=== PATIENT | male | born 1995 | race Caucasian/White ===

== ENCOUNTER 2023-08-17 08:59 | Inpatient (IN) | payer BC ==
[~2023-08-17] VITALS: Ht 180.3 cm; Wt 60.1 kg
[2023-08-17 08:00] VITALS: BP 124/83; PULSE 78; RESP 20; TEMP 97.8
[2023-08-17 10:36] LABS: BASOPHILS % 0.6 % (0.0-2.0); EOSINOPHILS % 1.3 % (0.0-5.0); HEMATOCRIT. 45.1 % (42.0-52.0); LYMPHOCYTES % 22.1 % (20.0-50.0); MEAN CORPUSCULAR HGB CONC 33.3 g/dL (31.0-37.0); MEAN CORPUSCULAR VOLUME 86.9 fL (80.0-94.0); MONOCYTES % 6.1 % (2.0-8.0); NEUTROPHILS % 69.9 % (40.0-76.0); PLATELET 320 x1000/uL (130-400); RED BLOOD CELL COUNT 5.19 mill/uL (4.7-6.1); RED CELL DISTRIBUTION WIDTH 13.8 % (11.6-14.6); WHITE BLOOD COUNT 6.6 x1000/uL (4.5-11.0)
[2023-08-17 11:14] LABS: ALANINE AMINOTRANSFERASE 19 IU/L (10-49); ALBUMIN 4.4 g/dL (3.2-4.8); ASPARTATE AMINOTRANSFERASE 32 IU/L (<34); BILIRUBIN TOTAL 1.6 mg/dL (0.1-1.0); CALCIUM 9.7 mg/dL (8.7-10.4); CARBON DIOXIDE 30 mEq/L (21-32); CHLORIDE 105 mEq/L (98-107); GLUCOSE 82 mg/dL (70-105); PROTEIN TOTAL 6.8 g/dL (6.0-8.3); SODIUM 141 mEq/L (136-145); UREA NITROGEN BLOOD 9 mg/dL (9-23)
[2023-08-17 11:35] LABS: TROPONIN I HIGH SENSITIVITY < 4 ng/L (3.0-53)
[2023-08-17 16:00] VITALS: PULSE 86
[2023-08-17 16:59] VITALS: BP 124/83; PULSE 75; RESP 18; TEMP 97.5
[2023-08-17 17:20] VITALS: BP 124/83; PULSE 65; RESP 18; TEMP 97
[2023-08-17] MEDS ORDERED: ZOLPIDEM TARTRATE 5MG TABLET PO PRN (17:45)
[2023-08-17] MEDS ORDERED: CLONIDINE 0.1MG TABLET PO PRN (17:45)
[2023-08-17] MEDS ORDERED: ACETAMINOPHEN 325MG TABLET PO PRN ×2 (17:45)
[2023-08-17] MEDS ORDERED: DIPHENHYDRAMINE 50MG/ML VIAL IV PRN (17:45)
[2023-08-17] MEDS ORDERED: MAGNESIUM/ALUMINUM HYDROXIDE/SIMETHICONE 30ML UDC PO PRN (17:45)
[2023-08-17] MEDS ORDERED: ONDANSETRON HCL 4MG/2ML INJ IV PRN (17:45)
[2023-08-17 19:37] LABS: CLARITY URINE CLEAR (CLEAR); COLOR URINE YELLOW (YELLOW)
[2023-08-17 19:38] LABS: GLUCOSE URINE NEGATIVE (NEGATIVE); KETONES URINE NEGATIVE (NEGATIVE); LEUKOCYTE ESTERASE URINE NEGATIVE (NEGATIVE); NITRITE URINE NEGATIVE (NEGATIVE); OCCULT BLOOD URINE NEGATIVE (NEGATIVE); PROTEIN URINE NEGATIVE (NEGATIVE); UROBILINOGEN URINE 0.2 E.U./dL (0.2-1.0)
[2023-08-17 20:00] VITALS: BP 120/79; PULSE 60; RESP 19; TEMP 97.6
[2023-08-17] MEDS: SODIUM CHLORIDE 0.9% INJ 3ML FLUSH IVF SCH (21:05)
[2023-08-17 22:25] LABS: *AMPHETAMINES SCREEN URINE NEGATIVE (NEGATIVE); *BARBITURATES SCREEN URINE NEGATIVE (NEGATIVE); *BENZODIAZEPINES SCREEN URINE NEGATIVE (NEGATIVE); *COCAINE SCREEN URINE NEGATIVE (NEGATIVE); CANNABINOID URINE SCREEN NEGATIVE (NEGATIVE); ECSTASY MDMA SCREEN URINE NEGATIVE (NEGATIVE); METHADONE URINE SCREEN Neg (NEGATIVE); OPIATES URINE SCREEN NEGATIVE (NEGATIVE); PHENCYCLIDINE URINE SCREEN NEGATIVE (NEGATIVE)
[2023-08-18] VITALS: BP 116/68; PULSE 66; RESP 18; TEMP 97.6
[2023-08-18 04:00] VITALS: BP 110/64; PULSE 65; RESP 19; TEMP 98
[2023-08-18] MEDS: SODIUM CHLORIDE 0.9% INJ 3ML FLUSH IVF SCH ×2 (05:10→14:13)
[2023-08-18 08:00] VITALS: BP 130/104; PULSE 76; RESP 18; TEMP 98.6
[2023-08-18 12:00] VITALS: BP 124/86; PULSE 80; RESP 18; TEMP 98.4
[2023-08-18 14:27] VITALS: BP 124/86; PULSE 80; TEMP 98.4; O2SAT 97
[2023-08-18 15:50] VITALS: BP 18/70; PULSE 75; RESP 18; TEMP 97.9
== END 2023-08-18 16:00 | disposition home or self-care (01) | DRG 74 ==
LOC: ER 09:21 → 7WST 11:53 → EDBEDREQ 11:55
PROVIDERS: ADMIT Internal Medicine; ATTEND Internal Medicine
DX: G90.8 Other disorders of autonomic nervous system (principal); F41.0 Panic disorder [episodic paroxysmal anxiety]; R07.89 Other chest pain
CPT/HCPCS: 36415; 71045; 71275; 80053; 80305; 81003; 84484; 85025; 85379; 93005; 93306; 93880; 93970; 99285